=== PATIENT | male | born 1955 | race Hispanic/Latino ===

== ENCOUNTER → 2025-04-21 | Day surgery (SDC) | payer MEDICARE ==
[2025-04-14 11:06] LABS: BASOPHILS % 0.7 % (0.0-1.0); EOSINOPHILS % 1.0 % (0.0-6.0); LYMPHOCYTES % 25.6 % (18.0-39.1); MONOCYTES % 8.9 % (4.4-11.3); NEUTROPHILS % 63.3 % (38.7-80.0); RED CELL DISTRIBUTION WIDTH 13.7 % (11.7-14.4)
[~2025-04-21] MED LIST: FISH OIL PO; GARLIC PO; LACTATED RINGER'S 1,000 ML ONE; LIDOCAINE HCL 2% LOCAL INJ 5 ML SDV VIAL INJ ONE; LISINOPRIL PO; MIRTAZAPINE15 MG PO; PROPOFOL IV EMULSION 10 MG/ML 20 ML VIAL ONE; ZESTRIL10 MG PO
[2025-04-21 12:18] VITALS: TEMP 97
[2025-04-21 12:35] VITALS: BP 121/79; PULSE 60; RESP 16; O2SAT 100
== END | disposition home or self-care (01) ==
LOC: OR 09:28
PROVIDERS: ATTEND Internal Medicine Gastroenterology
DX: Z09 Encounter for follow-up examination after completed treatment for conditions other than malignant neoplasm (principal); D12.0 Benign neoplasm of cecum; K57.30 Diverticulosis of large intestine without perforation or abscess without bleeding; K64.8 Other hemorrhoids; I10 Essential (primary) hypertension; E78.5 Hyperlipidemia, unspecified; Z78.9 Other specified health status; E66.9 Obesity, unspecified; Z01.810 Encounter for preprocedural cardiovascular examination; Z01.812 Encounter for preprocedural laboratory examination; Z79.899 Other long term (current) drug therapy; Z68.32 Body mass index [BMI] 32.0-32.9, adult; Z71.3 Dietary counseling and surveillance
CPT/HCPCS: 36415; 45380; 85025; 88305; 93005; J2003; J2704; J7121; 45378